=== PATIENT | female | born 1975 | race Two or more races ===

== ENCOUNTER 2017-01-01 18:50 | Observation (INO) | payer MEDICAID ==
[~2017-01-01] VITALS: Ht 165.1 cm; Wt 113.4 kg
[~2017-01-01 18:50] MED LIST: ACET-1304; ALBU18; ASPITAB34
[2017-01-01] MEDS ORDERED: IPRATROPIUM BROM 0.5 MG/2.5ML INH SOL NEB ONE (19:15)
[2017-01-01] MEDS ORDERED: ALBUTEROL SULF 2.5 MG/0.5ML(0.5%) NEB SOLN NEB ONE (19:15)
[2017-01-01 20:18] LABS: Basophils # (auto) 0 uL; Eosinophils # (auto) 0 uL; Hematocrit 39.1 % (36.0-46.0); Hemoglobin 12.8 g/dL (12.2-16.2); Lymphocytes # (auto) 0.5 uL; Lymphocytes % (auto) 5.9 % (10.0-50.0); Mean Corpuscular Hemoglobin 29.9 pg (28.0-32.0); Mean Corpuscular Hgb Conc. 32.7 g/dL (32.0-36.0); Mean Corpuscular Volume 91.5 fL (80.0-100.0); Mean Platelet Volume 7.6 fL (7.4-10.4); Monocytes # (auto) 0 uL; Monocytes % (auto) 0.4 % (0.0-12.0); Neutrophils # (auto) 8.5 uL; Neutrophils % (auto) 93.7 % (37.0-80.0); Platelet Count (auto) 395 10^3/uL (140-450); Red Cell Distribution Width 15.8 % (11.6-16.0); White Blood Cell 9.1 10^3/uL (4.4-10.8)
[2017-01-01 20:49] LABS: Albumin 3.7 g/dL (3.4-5.0); BUN/Creatinine Ratio 9.5; Calcium 8.7 mg/dL (8.5-10.1); Potassium 3.7 mmol/L (3.5-5.1)
[2017-01-01 20:52] LABS: Bilirubin, Total 0.2 mg/dL (0.2-1.0); Total Protein 8.9 g/dL (6.4-8.2)
[2017-01-01 21:49] LABS: Urine Bilirubin Negative (Negative); Urine Blood Negative /uL (Negative); Urine Color Yellow (Yellow); Urine Glucose Normal (Normal); Urine Ketone Negative (Negative); Urine Nitrite Negative (Negative); Urine RBC 2 /hpf (0 - 4); Urine Squamous Epithelial Cell FEW /hpf (<5); Urine Urobilinogen Normal (Negative)
[2017-01-01] MEDS ORDERED: SODIUM CHLORIDE 0.9% 250 ML IV ONE (22:15)
[2017-01-01] MEDS ORDERED: methylPREDNISolone SOD SUCC 125 MG/2 ML VL IV ONE (22:15)
[2017-01-01] MEDS ORDERED: FAMOTIDINE (10MG/ML) 2ML VL IV ONE (22:15)
[2017-01-02] MEDS ORDERED: HYDROcodone-ACET 5/325MG TAB PO ONE (00:15)
[2017-01-02] MEDS ORDERED: ALBUTEROL SULF 2.5 MG/0.5ML(0.5%) NEB SOLN NEB ONE ×3 (00:30→08:30)
[2017-01-02] MEDS ORDERED: IPRATROPIUM BROM 0.5 MG/2.5ML INH SOL NEB ONE ×2 (00:30→08:30)
[2017-01-02] MEDS ORDERED: ONDANSETRON ODT 4 MG TAB PO ONE (00:30)
[2017-01-02] MEDS ORDERED: EPINEPHrine HCL 1 MG/1 ML AMP SC ONE (02:00)
[2017-01-02 05:09] LABS: Temperature: 21.9 C (20.0-25.0)
[2017-01-02] MEDS ORDERED: methylPREDNISolone SOD SUCC 125 MG/2 ML VL IV ONE (06:45)
[2017-01-02] MEDS ORDERED: PROMETHAZINE W/CODEINE 5 ML ORAL SYRUP PO ONE (08:15)
[2017-01-02] MEDS ORDERED: AZITHROMYCIN 500MG/D5W 250ML 250 ML IV ONE (08:30)
[2017-01-02] MEDS ORDERED: DEXAMETHASONE SOD PHOS 4 MG/1ML SDV INJ IV ONE (08:30)
[2017-01-02] MEDS ORDERED: FLUT1SPR5 (09:31)
[2017-01-02] MEDS ORDERED: PRE5T PO (09:31)
[2017-01-02] MEDS ORDERED: CETI1TAB36 PO (09:31)
[2017-01-02] MEDS ORDERED: ALL300T PO (09:31)
[2017-01-02] MEDS ORDERED: ACE3T PO (09:31)
[2017-01-02] MEDS ORDERED: OMEP20CA5 PO (09:31)
[2017-01-02] MEDS ORDERED: METO-281 PO (09:31)
[2017-01-02] MEDS ORDERED: TOPI100C OR (09:31)
[2017-01-02] MEDS ORDERED: METH-171 PO (09:31)
[2017-01-02] MEDS ORDERED: FLUO20CA19 PO (09:31)
[2017-01-02] MEDS ORDERED: DOXE50CA57 PO (09:31)
[2017-01-02] MEDS ORDERED: ATEN-60 PO (09:31)
[2017-01-02] MEDS ORDERED: BECL80AE7 (09:31)
[2017-01-02] MEDS ORDERED: [UNRECOGNIZED DRUG - CODE] PO (09:31)
[2017-01-02] MEDS ORDERED: SUMA100T2 PO (09:31)
[2017-01-02] MEDS ORDERED: RIBO100T8 PO (09:31)
[2017-01-02] MEDS ORDERED: MELO-41 PO (09:31)
[2017-01-02] MEDS ORDERED: [UNRECOGNIZED DRUG - CODE] PO (09:31)
[2017-01-02 11:57] VITALS: BP 115/72
== END 2017-01-02 12:20 | disposition home or self-care (01) | DRG 141 ==
LOC: EDBD 18:50 → ER 18:54 → OVERFLOW 01-02 04:11 → ER 01-02 12:20
PROVIDERS: ADMIT Emergency Medicine; ATTEND Emergency Medicine
DX: J45.31 Mild persistent asthma with (acute) exacerbation (principal); J06.9 Acute upper respiratory infection, unspecified
CPT/HCPCS: 36415; 71020; 80053; 81001; 83880; 84484; 84702; 85025; 85379; 93005; 94640; 96361; 96365; 96366; 96372; 96375; 96376; 99285; G0378; J0171; J0456; J1100; J2930; J3490; Q0162

== ENCOUNTER 2017-05-28 17:31 | Emergency (ER) | payer MEDICAID ==
[~2017-05-28] VITALS: Ht 165.1 cm; Wt 117.5 kg
[~2017-05-28 17:31] MED LIST changes: +ACE3T PO; -ACET-1304; +ALL300T PO; -ASPITAB34; +ATEN-60 PO; +BECL80AE7; +CETI1TAB36 PO; +DOXE50CA57 PO; +FLUO20CA19 PO; +FLUT1SPR5; +MELO-41 PO; +METH-532 PO; +METO-281 PO; +OMEP20CA74 PO; +PRE5T PO; +RIBO100T8 PO; +SUMA100T2 PO; +TOPI100C OR; +[UNRECOGNIZED DRUG - CODE] PO; +[UNRECOGNIZED DRUG - CODE] PO
[2017-05-28] MEDS ORDERED: PROMETHAZINE HCL 6.25 MG/5 ML ORAL SYRUP PO ONE (23:15)
[2017-05-28] MEDS ORDERED: PROMETHAZINE HCL 25 MG/ML 1ML IM ONE (23:45)
[2017-05-28] MEDS ORDERED: ACETAMINOPHEN 325 MG TAB PO ONE (23:45)
[2017-05-29 01:09] VITALS: BP 125/88
== END 2017-05-29 01:10 | disposition home or self-care (01) ==
LOC: ER 17:38
DX: S00.83XA Contusion of other part of head, initial encounter (principal); M19.90 Unspecified osteoarthritis, unspecified site; J45.909 Unspecified asthma, uncomplicated; K21.9 Gastro-esophageal reflux disease without esophagitis; M10.9 Gout, unspecified; E78.5 Hyperlipidemia, unspecified; I10 Essential (primary) hypertension; Z88.2 Allergy status to sulfonamides; Z79.899 Other long term (current) drug therapy; Z88.0 Allergy status to penicillin; Z88.8 Allergy status to other drugs, medicaments and biological substances; W22.8XXA Striking against or struck by other objects, initial encounter; Y93.89 Activity, other specified; Y99.8 Other external cause status; Y92.89 Other specified places as the place of occurrence of the external cause
CPT/HCPCS: 70450; 96372; 99284; J2550

== ENCOUNTER 2017-10-09 07:13 | Emergency (ER) | payer MEDICAID ==
[~2017-10-09] VITALS: Ht 160 cm; Wt 121.6 kg
[~2017-10-09 07:13] MED LIST changes: -TOPI100C OR; +TOPI1CAP23 OR
[2017-10-09 07:37] VITALS: BP 148/70
[2017-10-09] MEDS ORDERED: ALBUTEROL SULF 2.5 MG/0.5ML(0.5%) NEB SOLN NEB ONE (08:00)
[2017-10-09] MEDS ORDERED: IPRATROPIUM BROM 0.5 MG/2.5ML INH SOL NEB ONE (08:00)
[2017-10-09] MEDS ORDERED: methylPREDNISolone SOD SUCC 125 MG/2 ML VL IM ONE (08:00)
== END 2017-10-09 09:16 | disposition home or self-care (01) ==
LOC: ER 07:13
DX: J45.901 Unspecified asthma with (acute) exacerbation (principal); M10.9 Gout, unspecified; K21.9 Gastro-esophageal reflux disease without esophagitis; I10 Essential (primary) hypertension; E78.5 Hyperlipidemia, unspecified; M19.90 Unspecified osteoarthritis, unspecified site
CPT/HCPCS: 71046; 94640; 96372; 99284; J2930